=== PATIENT | male | born 1985 | race Caucasian/White ===

== ENCOUNTER 2024-12-18 18:11 | Emergency (ER) | payer SELFPAY ==
[2024-12-18 18:13] VITALS: BP 145/78; PULSE 78; RESP 16; TEMP 36.6; O2SAT 98
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
[2024-12-18 18:23] VITALS: BP 132/81; PULSE 73; PULSE 75; RESP 9; O2SAT 99
[2024-12-18 18:30] VITALS: BP 125/82; PULSE 75; PULSE 76; RESP 12; O2SAT 98
--- NOTE | 2024-12-18 18:30 | DI.RAD_ITS ---
Exam(s) XR ANKLE RT COMPLETE EXAM: XR ANKLE RT COMPLETE CLINICAL HISTORY: Right ankle pain. TECHNIQUE: 2D digital imaging was performed. COMPARISON: No exams were available for comparison FINDINGS: 3 views There is soft tissue swelling over the lateral malleolus but no evidence of fracture or widening the ankle mortise. Talar dome unremarkable. There are no obvious degenerative changes in the tibiotalar joint nor in the other hindfoot articulations.. IMPRESSION: Lateral soft tissue swelling but no acute fracture evident. DATA REPOSITORY: RADIATION DOSE DELIVERED:
[2024-12-18 18:59] LABS: Abs Immature Grans 0.02 10^3/uL (0.0-0.06); HCT 41.3 % (40.0-50.0); HGB 13.9 g/dL (13.5-17.5); Immature Grans % 0.2 %; MCH 30.2 pg (27.0-33.0); MCHC 33.7 % (32.0-36.0); MCV 90 fL (80-95); MPV 10.5 fL (8.0-11.0); Platelet Count 222 10^3/uL (130-400); RBC 4.60 10^6/uL (4.36-5.78); RDW 12.9 % (11.8-14.1); RDW-SD 42.6 fL; WBC 9.61 10^3/uL (4.4-10.8)
[2024-12-18 19:08] LABS: Anion Gap 7.3 mmol/L (3-11); BUN 15 mg/dL (7-18); CO2 31.7 mmol/L (21.0-32.0); Calcium 8.9 mg/dL (8.5-10.1); Chloride 103 mmol/L (98-107); Estimated GFR 98.18 (mL/min/1.73m2); Glucose 86 mg/dL (74-106); Potassium 4.3 mmol/L (3.5-5.1); Sodium 142 mmol/L (136-145)
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
[2024-12-18] MEDS: Normal Saline 500 ML 1000 ML IV (19:33)
[2024-12-18] MEDS: Normal Saline - Diluent 50 ML VIAL IJ (19:36)
[2024-12-18 19:51] VITALS: BP 138/107; PULSE 69; PULSE 70; RESP 14; O2SAT 100
[2024-12-18 20:11] VITALS: BP 141/92; PULSE 66; PULSE 67; RESP 21; O2SAT 99
[2024-12-18 20:31] VITALS: BP 143/91; PULSE 66; PULSE 67; RESP 20; O2SAT 98
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
--- NOTE | 2024-12-18 20:46 | DI.VRAD_ITS ---
PROCEDURE INFORMATION: Exam: XR Right Ankle Exam date and time: 12/18/2024 7:09 PM Age: 39 years old Clinical indication: Injury or trauma; Other: Foot got stuck coming off chair lift and twisted; Other: Twisting injury leading to unstable feeling and pain per patient TECHNIQUE: Imaging protocol: Radiologic exam of the right ankle. Views: 3 or more views. COMPARISON: No relevant prior studies available. FINDINGS: Bones/joints: Three views of the right ankle reveal no acute fracture or dislocation. The ankle mortise appears intact. Soft tissues: There is soft tissue swelling over the lateral malleolus. IMPRESSION: No acute fracture or dislocation seen at the right ankle. Soft tissue swelling over the lateral malleolus. Dictated and Authenticated by: Troy Chu MD. Orderin Rebecca Gudino MD
[2024-12-18] MEDS: Diph,Pertuss(Acell),Tet Vac/Pf 0.5 ML SYR IM (21:05)
== END 2024-12-18 21:34 | disposition home or self-care (01) ==
LOC: ER 21:34
PROVIDERS: Emergency Provider Emergency Medicine
DX: S30.811A Abrasion of abdominal wall, initial encounter (principal); M89.8X8 Other specified disorders of bone, other site; Z23 Encounter for immunization; V18.0XXA Pedal cycle driver injured in noncollision transport accident in nontraffic accident, initial encounter
CPT/HCPCS: 99284; 99285; 90471; 74177; 76604; 76705; 76857; 80048; 86850; 86900; 86901; 90715; 96360; 71260; 73610; 85025; J3490